=== PATIENT | female | born 1960 | race Caucasian/White ===

== ENCOUNTER 2018-06-14 12:24 | Day surgery (SDC) | payer MEDICARE, OTHER ==
[~2018-06-14] VITALS: Ht 175.3 cm; Wt 89.2 kg
[~2018-06-14 12:24] MED LIST: FENTANYL PF 100 MCG/2ML ONE; MIDAZOLAM 1 MG/ML, 2ML ONE
[2018-06-14] MEDS ORDERED: DULO20CA45 PO (13:08)
[2018-06-14] MEDS ORDERED: LEVO75TA5 PO (13:08)
[2018-06-14] MEDS ORDERED: OXYC30TA66 PO (13:08)
[2018-06-14] MEDS ORDERED: OXYC5TAB2 PO (13:08)
[2018-06-14] MEDS ORDERED: EPINEPHRINE 1 MG/ML, 1ML ONE (13:11)
[2018-06-14] MEDS ORDERED: BUPIVACAINE/PF 0.5% ONE (13:11)
[2018-06-14 13:25] VITALS: BP 125/82
[2018-06-14] MEDS ORDERED: GABAPENTIN 300 MG CAPSULE ONE (13:34)
[2018-06-14] MEDS ORDERED: ACETAMINOPHEN 500 MG TABLET ONE (13:34)
[2018-06-14] MEDS ORDERED: LACTATED RINGERS 1,000 ML IV SCH (13:35)
[2018-06-14] MEDS ORDERED: OXYcodone IR 5MG TABLET ONE (13:39)
[2018-06-14] MEDS ORDERED: ACETAMINOPHEN 500 MG TABLET PO ONE (14:00)
[2018-06-14] MEDS ORDERED: OXYcodone IR 5MG TABLET PO ONE (14:00)
[2018-06-14] MEDS ORDERED: GABAPENTIN 300 MG CAPSULE PO ONE (14:00)
[2018-06-14] MEDS ORDERED: ONDANSETRON 2MG/ML, 2ML ONE (14:20)
[2018-06-14] MEDS ORDERED: PROPOFOL 10 MG/ML, 20ML ONE (14:20)
[2018-06-14] MEDS ORDERED: CEFAZOLIN 1,000 MG ONE (14:20)
[2018-06-14] MEDS ORDERED: DEXAMETHASONE 4 MG/ML, 1ML ONE (14:20)
[2018-06-14] MEDS ORDERED: OXYcodone 5 MG/5 ML ORAL.SOL UDC PO PRN (14:30)
[2018-06-14] MEDS ORDERED: ONDANSETRON 2MG/ML, 2ML IV PRN (14:30)
[2018-06-14] MEDS ORDERED: HYDROmorphone 1 MG/ML, 1ML IV PRN (14:30)
[2018-06-14] MEDS ORDERED: FENTANYL PF 100 MCG/2ML IV PRN (14:30)
[2018-06-14] MEDS ORDERED: DIPHENHYDRAMINE 50 MG/ML, 1ML IVPush PRN (14:30)
[2018-06-14] MEDS ORDERED: PLEASE ENTER ALLERGIES MC SCH (15:00)
[2018-06-14] MEDS ORDERED: OXYcodone 5 MG/5 ML ORAL.SOL UDC ONE (15:39)
== END 2018-06-14 17:20 | disposition home or self-care (01) ==
LOC: OUT 12:24
PROVIDERS: ATTEND Orthopaedic Surgery
DX: S62.627A Displaced fracture of middle phalanx of left little finger, initial encounter for closed fracture (principal); E03.9 Hypothyroidism, unspecified; G89.29 Other chronic pain; Z98.890 Other specified postprocedural states; Z79.899 Other long term (current) drug therapy; X58.XXXA Exposure to other specified factors, initial encounter; Y93.89 Activity, other specified; Y92.89 Other specified places as the place of occurrence of the external cause; Y99.8 Other external cause status; Z88.6 Allergy status to analgesic agent; Z88.8 Allergy status to other drugs, medicaments and biological substances
CPT/HCPCS: 20690; 26735; 73140; 76000; J0171; J0690; J1100; J2250; J2405; J2704; J3010; J3490; J7120

== ENCOUNTER 2019-06-19 11:54 | Outpatient (CLI) | payer MEDICARE | END 2019-06-19 23:59 | disposition home or self-care (01) | LOC: PETCFH 11:54 | PROVIDERS: ATTEND Surgery | DX: C78.6 Secondary malignant neoplasm of retroperitoneum and peritoneum (principal); C77.4 Secondary and unspecified malignant neoplasm of inguinal and lower limb lymph nodes; C79.82 Secondary malignant neoplasm of genital organs; C79.51 Secondary malignant neoplasm of bone; C79.89 Secondary malignant neoplasm of other specified sites; C21.0 Malignant neoplasm of anus, unspecified | CPT/HCPCS: 78815; A9552 ==

== ENCOUNTER 2019-06-28 07:46 | Day surgery (SDC) | payer MEDICARE, OTHER ==
[~2019-06-28] VITALS: Ht 175.3 cm; Wt 92.4 kg
[~2019-06-28 07:46] MED LIST changes: +DULO20CA45 PO; -FENTANYL PF 100 MCG/2ML ONE; +LEVO75TA5 PO; -MIDAZOLAM 1 MG/ML, 2ML ONE; +OXYC30TA66 PO; +OXYC5TAB2 PO
[2019-06-28 08:17] VITALS: BP 105/67
[2019-06-28] MEDS ORDERED: PLEASE ENTER HEIGHT AND WEIGHT MC SCH ×2 (08:30)
[2019-06-28] MEDS ORDERED: PLEASE ENTER ALLERGIES MC SCH (08:30)
[2019-06-28] MEDS ORDERED: SODIUM CHLORIDE 0.9% 1,000 ML IV SCH (08:30)
[2019-06-28] MEDS ORDERED: CEFAZOLIN PMX 1GM/50ML 50 ML IV ONE (08:30)
[2019-06-28] MEDS ORDERED: FENTANYL PF 100 MCG/2ML ONE (09:19)
[2019-06-28] MEDS ORDERED: FLUMAZENIL 0.1 MG/1 ML, 5ML ONE (09:19)
[2019-06-28] MEDS ORDERED: MIDAZOLAM 1 MG/ML, 5ML ONE (09:19)
[2019-06-28] MEDS ORDERED: NALOXONE 1 MG/ML, 2ML ONE (09:19)
[2019-06-28] MEDS ORDERED: LIDOCAINE 1%, 20ML ONE ×2 (09:20→10:49)
[2019-08-02] MEDS ORDERED: OXYC20OR8 PO (11:38)
[2019-08-02] MEDS ORDERED: LIDO1KIT TP (11:38)
[2019-08-02] MEDS ORDERED: CIPR500T3 PO (11:38)
[2019-08-02] MEDS ORDERED: PROC10TA78 PO (11:38)
[2019-08-02] MEDS ORDERED: ONDA8TAB16 SL (11:38)
== END 2019-06-28 13:05 | disposition home or self-care (01) ==
LOC: OUT 07:46
PROVIDERS: ATTEND Internal Medicine Hematology & Oncology
DX: Z45.2 Encounter for adjustment and management of vascular access device (principal); C21.1 Malignant neoplasm of anal canal; R59.1 Generalized enlarged lymph nodes; Z88.6 Allergy status to analgesic agent; E03.9 Hypothyroidism, unspecified; Z87.39 Personal history of other diseases of the musculoskeletal system and connective tissue; G89.4 Chronic pain syndrome; Z98.890 Other specified postprocedural states
CPT/HCPCS: 36561; 38505; 76942; 77001; 88305; 99156; 99157; C1788; J0690; J1642; J2250; J3010; J7030; 88312; J2310

== ENCOUNTER 2019-09-19 09:37 | Outpatient (CLI) | payer MEDICARE ==
[~2019-09-19 09:37] MED LIST changes: +CIPR500T3 PO; +LIDO1KIT TP; +ONDA8TAB16 SL; +OXYC20OR8 PO; +PROC10TA78 PO
== END 2019-09-19 23:59 | disposition home or self-care (01) ==
LOC: ROC 09:37
PROVIDERS: ATTEND Radiology Radiation Oncology
DX: Z02.9 Encounter for administrative examinations, unspecified (principal)
CPT/HCPCS: 77336; 77386

== ENCOUNTER 2019-10-02 08:18 | Outpatient (CLI) | payer MEDICARE | END 2019-10-02 23:59 | disposition home or self-care (01) | LOC: ROC 08:18 | PROVIDERS: ATTEND Radiology Radiation Oncology | DX: C21.1 Malignant neoplasm of anal canal (principal) | CPT/HCPCS: 99213; G0463 ==

== ENCOUNTER 2019-10-24 09:01 | Outpatient (CLI) | payer MEDICARE | END 2019-10-24 23:59 | disposition home or self-care (01) | LOC: ROC 09:01 | PROVIDERS: ATTEND Radiology Radiation Oncology | DX: C21.1 Malignant neoplasm of anal canal (principal) | CPT/HCPCS: 99213; G0463 ==

== ENCOUNTER → 2019-10-29 | Outpatient (CLI) | payer MEDICARE | END | disposition home or self-care (01) | LOC: PETCFH 12:33 | PROVIDERS: ATTEND Nurse Practitioner Family | DX: C21.1 Malignant neoplasm of anal canal (principal); I89.8 Other specified noninfective disorders of lymphatic vessels and lymph nodes | CPT/HCPCS: 78815; A9552 ==

== ENCOUNTER 2020-01-03 08:04 | Outpatient (CLI) | payer MEDICARE | END 2020-01-03 23:59 | disposition home or self-care (01) | LOC: ROC 08:04 | PROVIDERS: ATTEND Radiology Radiation Oncology | DX: Z02.9 Encounter for administrative examinations, unspecified (principal) ==

== ENCOUNTER 2020-06-26 07:42 | Outpatient (CLI) | payer MEDICARE | END 2020-06-26 23:59 | disposition home or self-care (01) | LOC: PETCFH 07:42 | PROVIDERS: ATTEND Internal Medicine Hematology & Oncology | DX: C21.1 Malignant neoplasm of anal canal (principal); R59.0 Localized enlarged lymph nodes | CPT/HCPCS: 78815; A9552 ==

== ENCOUNTER → 2020-07-10 | Outpatient (CLI) | payer MEDICARE | END | disposition home or self-care (01) | LOC: CFH 11:06 | PROVIDERS: ATTEND Internal Medicine Hematology & Oncology | DX: C21.1 Malignant neoplasm of anal canal (principal); I63.81 Other cerebral infarction due to occlusion or stenosis of small artery | CPT/HCPCS: 70450 ==

== ENCOUNTER 2021-06-25 09:39 | Outpatient (CLI) | payer MEDICARE ==
[~2021-06-25 09:39] MED LIST changes: -CIPR500T3 PO; +CIPR500T4 PO
== END 2021-06-25 23:59 | disposition home or self-care (01) ==
LOC: ROC 09:39
PROVIDERS: ATTEND Radiology Radiation Oncology
DX: Z08 Encounter for follow-up examination after completed treatment for malignant neoplasm (principal); Z85.048 Personal history of other malignant neoplasm of rectum, rectosigmoid junction, and anus
CPT/HCPCS: 99213; G0463